=== PATIENT | female | born 1965 | race Caucasian/White ===

== ENCOUNTER 2018-02-18 12:18 | Emergency (ER) | payer BC ==
[~2018-02-18] VITALS: Ht 160 cm; Wt 70.3 kg
[~2018-02-18 12:18] MED LIST: AUGMENTIN 875875 MG PO; CHERATUSSIN AC118 ML PO; FLONASE 0.05%50 MCG NASAL
[2018-02-18 12:25] VITALS: BP 119/83
[2018-02-18] MEDS ORDERED: AMITRIPTYLINE H10 M3 PO (12:32)
[2018-02-18] MEDS ORDERED: HYDROCODON-ACE1 EAC7 PO (12:48)
[2018-02-18] MEDS ORDERED: FLEXERIL PO (12:48)
[2018-02-18] MEDS ORDERED: IBUPROFEN 800800 MG PO (12:48)
== END 2018-02-18 13:01 | disposition home or self-care (01) ==
LOC: M.ERS 12:18
DX: M54.5 Low back pain (principal)

== ENCOUNTER → 2020-11-27 | Outpatient (CLI) | payer BC ==
[~2020-11-27] MED LIST changes: +AMITRIPTYLINE H10 M3 PO; +FLEXERIL PO; +HYDROCODON-ACE1 EAC7 PO; +IBUPROFEN 800800 MG PO
== END ==
LOC: M.RAD 09:37
PROVIDERS: ATTEND Internal Medicine Pulmonary Disease
DX: R10.30 Lower abdominal pain, unspecified (principal); R05 Cough